=== PATIENT | male | born 1960 | race Caucasian/White ===

== ENCOUNTER 2021-11-27 17:59 | Inpatient (IN) | payer MEDICARE, OTHER ==
[~2021-11-27] VITALS: Ht 170.2 cm; Wt 94.3 kg
[2021-11-27] MEDS ORDERED: VANCOMYCIN 1G PREMIX 200 ML IV ONE (19:15)
[2021-11-27] MEDS ORDERED: SODIUM CHLORIDE 0.9% 1,000 ML IV ONE (19:15)
[2021-11-27] MEDS ORDERED: SODIUM CHLORIDE 0.9% 1000ML BAG (SEPSIS BOLUS) IV ONE (19:15)
[2021-11-27] MEDS ORDERED: PIPERACILLIN/TAZ 3.375G PREMIX 50 ML IV ONE (19:15)
[2021-11-27 20:05] LABS: BASOPHILS % 0.5 % (0.0-2.0); EOSINOPHILS % 1.8 % (0.0-5.0); HEMATOCRIT. 38.3 % (42.0-52.0); HEMOGLOBIN. 12.8 g/dL (14.0-18.0); LYMPHOCYTES % 10.9 % (20.0-50.0); MEAN CORPUSCULAR HEMOGLOBIN 27.9 pg (28.0-32.0); MEAN CORPUSCULAR VOLUME 83.4 fL (80.0-94.0); MEAN PLATELET VOLUME 6.7 fl (7.4-10.4); MONOCYTES % 8.6 % (2.0-8.0); NEUTROPHILS % 78.2 % (40.0-76.0); PLATELET 336 x1000/uL (130-400); RED BLOOD CELL COUNT 4.59 mill/uL (4.7-6.1); RED CELL DISTRIBUTION WIDTH 15.2 % (11.6-14.6)
[2021-11-27 20:13] LABS: CHLORIDE 103 mEq/L (98-107)
[2021-11-27] MEDS ORDERED: MORPHINE SULFATE 4 MG/ML CPJ (NOT FOR IM USE) IV ONE (22:15)
[2021-11-28] VITALS (11 sets, daily range): BP systolic 91–142; BP diastolic 49–84
[2021-11-28 00:33] LABS: CLARITY URINE CLEAR (CLEAR); COLOR URINE YELLOW (YELLOW); KETONES URINE NEGATIVE (NEGATIVE); LEUKOCYTE ESTERASE URINE NEGATIVE (NEGATIVE); NITRITE URINE NEGATIVE (NEGATIVE); OCCULT BLOOD URINE NEGATIVE (NEGATIVE); PROTEIN URINE NEGATIVE (NEGATIVE); SPECIFIC GRAVITY URINE 1.018 (1.005-1.030); UROBILINOGEN URINE 0.2 E.U./dL (0.2-1.0)
[2021-11-28] MEDS ORDERED: DIPHENHYDRAMINE 50MG/ML VIAL IV PRN (01:00)
[2021-11-28] MEDS ORDERED: ACETAMINOPHEN 325MG TABLET PO PRN (01:00)
[2021-11-28] MEDS ORDERED: VANCOMYCIN 1G PREMIX 200 ML IV SCH ×2 (01:00→08:00)
[2021-11-28] MEDS ORDERED: CLONIDINE 0.1MG TABLET PO PRN (01:00)
[2021-11-28] MEDS ORDERED: ONDANSETRON HCL 4MG/2ML INJ IV PRN (01:00)
[2021-11-28] MEDS ORDERED: ZOLPIDEM TARTRATE 5MG TABLET PO PRN (01:00)
[2021-11-28] MEDS ORDERED: NALOXONE HCL 0.4MG/ML VIAL IV PRN (01:30)
[2021-11-28] MEDS: SODIUM CHLORIDE 0.9% INJ 3ML FLUSH IVF SCH ×3 (06:50→21:26)
[2021-11-28] MEDS: MORPHINE SULFATE 2 MG/ML CPJ (NOT FOR IM USE) IV PRN ×4 (06:51→23:59)
[2021-11-28] MEDS ORDERED: PNEUMOCOCCAL 23-VAL P-SAC VAC 0.5 ML IM ONE (08:00)
[2021-11-28] MEDS: ENOXAPARIN 30MG/0.3ML SYR SUBCUT SCH ×2 (08:45→21:26)
[2021-11-28] MEDS: VANCOMYCIN 1GM PMX (XELLIA) 200 ML IV SCH ×2 (11:01→21:23)
[2021-11-28] MEDS ORDERED: DIAZEPAM 5 MG TABLET PO SCH (14:00)
[2021-11-28] MEDS ORDERED: CEFTRIAXONE 1 G PREMIX 50 ML IV SCH (14:15)
[2021-11-28] MEDS: CEFTRIAXONE 1,000 MG in DEXTROSE 5% WATER 50 ML IV SCH (15:49)
[2021-11-29] VITALS (12 sets, daily range): BP systolic 118–140; BP diastolic 69–88
[2021-11-29] MEDS: MAGNESIUM/ALUMINUM HYDROXIDE/SIMETHICONE 30ML UDC PO PRN ×2 (05:00→09:38)
[2021-11-29] MEDS: SODIUM CHLORIDE 0.9% INJ 3ML FLUSH IVF SCH ×2 (05:23→13:12)
[2021-11-29 07:04] LABS: BASOPHILS % 1.1 % (0.0-2.0); EOSINOPHILS % 9.9 % (0.0-5.0); HEMATOCRIT. 32.9 % (42.0-52.0); HEMOGLOBIN. 11.2 g/dL (14.0-18.0); LYMPHOCYTES % 22.1 % (20.0-50.0); MEAN CORPUSCULAR HEMOGLOBIN 28.3 pg (28.0-32.0); MEAN CORPUSCULAR VOLUME 83.1 fL (80.0-94.0); MEAN PLATELET VOLUME 6.9 fl (7.4-10.4); MONOCYTES % 8.5 % (2.0-8.0); NEUTROPHILS % 58.4 % (40.0-76.0); PLATELET 282 x1000/uL (130-400); RED BLOOD CELL COUNT 3.96 mill/uL (4.7-6.1); RED CELL DISTRIBUTION WIDTH 15.2 % (11.6-14.6)
[2021-11-29 07:30] LABS: CHLORIDE 106 mEq/L (98-107)
[2021-11-29] MEDS: VANCOMYCIN 1GM PMX (XELLIA) 200 ML IV SCH ×2 (09:38→20:12)
[2021-11-29] MEDS: MORPHINE SULFATE 2 MG/ML CPJ (NOT FOR IM USE) IV PRN ×2 (09:38→20:03)
[2021-11-29] MEDS: POLYETHYLENE GLYCOL 3350 (17GM) 1 DOSE PACK PO SCH (10:12)
[2021-11-29] MEDS ORDERED: LACTULOSE 20G/30ML UDC PO NR (10:15)
[2021-11-29] MEDS ORDERED: BISACODYL 10MG SUPP PR NR (10:15)
[2021-11-29] MEDS ORDERED: GADOTERATE MEGLUMINE 5 MMOL/10 ML VIAL IV ONE (11:57)
[2021-11-29] MEDS: CEFTRIAXONE 1,000 MG in DEXTROSE 5% WATER 50 ML IV SCH (14:00)
[2021-11-30] VITALS (30 sets, daily range): BP systolic 73–172; BP diastolic 29–159
[2021-11-30] MEDS: SODIUM CHLORIDE 0.9% INJ 3ML FLUSH IVF SCH ×4 (00:06→22:12)
[2021-11-30] MEDS: MORPHINE SULFATE 2 MG/ML CPJ (NOT FOR IM USE) IV PRN ×4 (07:46→22:54)
[2021-11-30] MEDS: VANCOMYCIN 1GM PMX (XELLIA) 200 ML IV SCH ×2 (07:50→20:49)
[2021-11-30] MEDS: POLYETHYLENE GLYCOL 3350 (17GM) 1 DOSE PACK PO SCH (08:07)
[2021-11-30] MEDS ORDERED: SODIUM CHLORIDE 0.9% IRRIG SOL 2,000 ML IR ONE (11:14)
[2021-11-30] MEDS ORDERED: LIDOCAINE HCL/EPINEPHRINE 1%-EPI 1:100,000 30 ML VIAL INFIL ONE (11:14)
[2021-11-30] MEDS ORDERED: GENTAMICIN SULF 40MG/ML 2ML VIAL ONE (11:14)
[2021-11-30] MEDS ORDERED: THROMBIN (BOVINE) 5000 UNITS/VIAL TOP ONE (11:16)
[2021-11-30] MEDS ORDERED: PROPOFOL 10MG/ML 100ML 100 ML IV ONE ×2 (11:31→11:45)
[2021-11-30] MEDS ORDERED: NICARDIPINE 40MG/200ML PREMIX 200 ML IV ONE (11:32)
[2021-11-30] MEDS ORDERED: METOCLOPRAMIDE HCL 10MG/2ML VIAL ONE (11:47)
[2021-11-30] MEDS ORDERED: ONDANSETRON HCL 4MG/2ML INJ ONE (11:47)
[2021-11-30] MEDS ORDERED: SODIUM CHLORIDE 0.9% 10ML VIAL ONE ×2 (11:49→12:00)
[2021-11-30] MEDS ORDERED: PHENYLEPHRINE HCL 10 MG/ML 1ML (IV VIAL) IV ONE (11:51)
[2021-11-30] MEDS ORDERED: FENTANYL CITRATE/PF 50MCG/ML 2ML VIAL ONE (11:54)
[2021-11-30] MEDS ORDERED: ACETAMINOPHEN 500MG TABLET ONE (11:55)
[2021-11-30] MEDS ORDERED: MIDAZOLAM HCL 2 MG/2 ML VIAL ONE (12:16)
[2021-11-30] MEDS: DEXT 5%/LACTATED RINGERS 1,000 ML IV SCH (12:30)
[2021-11-30] MEDS ORDERED: NICARDIPINE 100 MG in SODIUM CHLORIDE 0.9% 60 ML IV PRN (12:30)
[2021-11-30] MEDS ORDERED: LIDOCAINE HCL 1% 20ML VIAL (Pyxis) INJ ONE (13:08)
[2021-11-30] MEDS ORDERED: LABETALOL HCL 5MG/ML VIAL 20ML IV ONE (13:27)
[2021-11-30] MEDS ORDERED: NEOSTIGMINE METHYLSULFATE 1MG/ML 10 ML VIAL ONE (13:27)
[2021-11-30] MEDS ORDERED: GLYCOPYRROLATE 0.2 MG/ML 2ML VIAL ONE (13:27)
[2021-11-30] MEDS: CEFTRIAXONE 2 G in DEXTROSE 5% WATER 50 ML IV SCH (14:00)
[2021-11-30] MEDS ORDERED: DIPHENHYDRAMINE INJ IV PRN (19:00)
[2021-11-30] MEDS ORDERED: NALOXONE INJ IV PRN (19:00)
[2021-11-30] MEDS ORDERED: ONDANSETRON INJ IV PRN (19:00)
[2021-11-30] MEDS ORDERED: HYDROMORPHONE PCA 10MG/50ML IV PRN (21:19)
[2021-12-01] VITALS (88 sets, daily range): BP systolic 16–290; BP diastolic -6–275
[2021-12-01] MEDS: MORPHINE SULFATE 2 MG/ML CPJ (NOT FOR IM USE) IV PRN ×9 (01:08→21:54)
[2021-12-01] MEDS: SODIUM CHLORIDE 0.9% INJ 3ML FLUSH IVF SCH ×3 (06:01→21:31)
[2021-12-01 06:45] LABS: BASOPHILS % 0.6 % (0.0-2.0); EOSINOPHILS % 2.6 % (0.0-5.0); HEMATOCRIT. 32.4 % (42.0-52.0); HEMOGLOBIN. 11.1 g/dL (14.0-18.0); LYMPHOCYTES % 10.1 % (20.0-50.0); MEAN CORPUSCULAR HEMOGLOBIN 28.3 pg (28.0-32.0); MEAN CORPUSCULAR VOLUME 82.4 fL (80.0-94.0); MONOCYTES % 8.5 % (2.0-8.0); NEUTROPHILS % 78.2 % (40.0-76.0); RED BLOOD CELL COUNT 3.93 mill/uL (4.7-6.1); RED CELL DISTRIBUTION WIDTH 15.1 % (11.6-14.6)
[2021-12-01 06:54] LABS: CHLORIDE 104 mEq/L (98-107)
[2021-12-01] MEDS: VANCOMYCIN 1GM PMX (XELLIA) 200 ML IV SCH ×2 (08:10→20:29)
[2021-12-01] MEDS: POLYETHYLENE GLYCOL 3350 (17GM) 1 DOSE PACK PO SCH (08:11)
[2021-12-01] MEDS: DEXT 5%/LACTATED RINGERS 1,000 ML IV SCH ×2 (12:17→20:30)
[2021-12-01] MEDS: CEFTRIAXONE 2 G in DEXTROSE 5% WATER 50 ML IV SCH (14:35)
[2021-12-01 19:06] LABS: QFT MITOGEN VALUE 5.25 IU/mL (.); QFT TB GOLD PLUS Negative (Negative); QFT TB1 AG VALUE 0.03 IU/mL (.)
[2021-12-02] VITALS (48 sets, daily range): BP systolic 86–133; BP diastolic 23–89
[2021-12-02] MEDS: MORPHINE SULFATE 2 MG/ML CPJ (NOT FOR IM USE) IV PRN ×8 (02:06→23:21)
[2021-12-02] MEDS: DEXT 5%/LACTATED RINGERS 1,000 ML IV SCH ×2 (04:44→11:35)
[2021-12-02] MEDS: SODIUM CHLORIDE 0.9% INJ 3ML FLUSH IVF SCH ×3 (05:06→22:14)
[2021-12-02] MEDS: VANCOMYCIN 1GM PMX (XELLIA) 200 ML IV SCH ×2 (08:01→19:58)
[2021-12-02] MEDS: POLYETHYLENE GLYCOL 3350 (17GM) 1 DOSE PACK PO SCH (08:01)
[2021-12-02] MEDS: CEFTRIAXONE 2 G in DEXTROSE 5% WATER 50 ML IV SCH (14:37)
[2021-12-02] MEDS: HYDROCODONE/ACETAMINOPHEN 10/325MG TABLET PO PRN (18:20)
[2021-12-03] VITALS (25 sets, daily range): BP systolic 89–127; BP diastolic 41–80
[2021-12-03] MEDS: MORPHINE SULFATE 2 MG/ML CPJ (NOT FOR IM USE) IV PRN ×6 (01:30→20:03)
[2021-12-03] MEDS: HYDROCODONE/ACETAMINOPHEN 10/325MG TABLET PO PRN ×4 (02:28→18:20)
[2021-12-03] MEDS: SODIUM CHLORIDE 0.9% INJ 3ML FLUSH IVF SCH ×3 (05:08→22:00)
[2021-12-03 05:51] LABS: BASOPHILS % 0.8 % (0.0-2.0); EOSINOPHILS % 11.4 % (0.0-5.0); HEMOGLOBIN. 10.3 g/dL (14.0-18.0); LYMPHOCYTES % 15.2 % (20.0-50.0); MEAN CORPUSCULAR HEMOGLOBIN 27.8 pg (28.0-32.0); MEAN PLATELET VOLUME 7.2 fl (7.4-10.4); MONOCYTES % 8.1 % (2.0-8.0); NEUTROPHILS % 64.5 % (40.0-76.0); PLATELET 315 x1000/uL (130-400); RED CELL DISTRIBUTION WIDTH 14.6 % (11.6-14.6)
[2021-12-03 06:06] LABS: CHLORIDE 104 mEq/L (98-107)
[2021-12-03] MEDS: POLYETHYLENE GLYCOL 3350 (17GM) 1 DOSE PACK PO SCH (08:59)
[2021-12-03] MEDS: VANCOMYCIN 1GM PMX (XELLIA) 200 ML IV SCH ×2 (08:59→20:08)
[2021-12-03] MEDS: CEFTRIAXONE 2 G in DEXTROSE 5% WATER 50 ML IV SCH (14:25)
[2021-12-03] MEDS: ACYCLOVIR 400 MG TABLET PO SCH (18:21)
[2021-12-04] VITALS: BP 104/62
[2021-12-04] MEDS: MORPHINE SULFATE 2 MG/ML CPJ (NOT FOR IM USE) IV PRN ×4 (01:43→20:00)
[2021-12-04 04:00] VITALS: BP 113/58
[2021-12-04] MEDS: SODIUM CHLORIDE 0.9% INJ 3ML FLUSH IVF SCH ×3 (06:00→21:58)
[2021-12-04 08:00] VITALS: BP 109/65
[2021-12-04] MEDS: ACYCLOVIR 400 MG TABLET PO SCH ×3 (09:03→17:31)
[2021-12-04] MEDS: VANCOMYCIN 1GM PMX (XELLIA) 200 ML IV SCH ×2 (09:03→19:58)
[2021-12-04] MEDS: POLYETHYLENE GLYCOL 3350 (17GM) 1 DOSE PACK PO SCH (09:03)
[2021-12-04 12:00] VITALS: BP 108/64
[2021-12-04] MEDS: CEFTRIAXONE 2 G in DEXTROSE 5% WATER 50 ML IV SCH (13:16)
[2021-12-04 16:00] VITALS: BP 101/64
[2021-12-04] MEDS: HYDROCODONE/ACETAMINOPHEN 10/325MG TABLET PO PRN (17:45)
[2021-12-04 20:00] VITALS: BP 106/52
[2021-12-05] VITALS: BP 107/66
[2021-12-05] MEDS: MORPHINE SULFATE 2 MG/ML CPJ (NOT FOR IM USE) IV PRN ×4 (00:33→21:13)
[2021-12-05 04:00] VITALS: BP 132/72
[2021-12-05] MEDS: SODIUM CHLORIDE 0.9% INJ 3ML FLUSH IVF SCH ×3 (05:06→21:12)
[2021-12-05] MEDS: DOCUSATE SODIUM 250MG CAPSULE PO PRN (06:44)
[2021-12-05 07:37] LABS: CHLORIDE 105 mEq/L (98-107)
[2021-12-05 08:00] VITALS: BP 144/69
[2021-12-05] MEDS: POLYETHYLENE GLYCOL 3350 (17GM) 1 DOSE PACK PO SCH (09:27)
[2021-12-05] MEDS: ACYCLOVIR 400 MG TABLET PO SCH ×3 (09:27→16:47)
[2021-12-05] MEDS: VANCOMYCIN 1GM PMX (XELLIA) 200 ML IV SCH ×2 (09:28→21:11)
[2021-12-05] MEDS: HYDROCODONE/ACETAMINOPHEN 10/325MG TABLET PO PRN (09:33)
[2021-12-05 12:00] VITALS: BP 130/79
[2021-12-05] MEDS ORDERED: LIDOCAINE HCL 1% 20ML VIAL (Pyxis) INJ ONE (12:54)
[2021-12-05 16:00] VITALS: BP 142/90
[2021-12-05] MEDS ORDERED: MORPHINE SULFATE 4 MG/ML CPJ (NOT FOR IM USE) IV PRN (16:00)
[2021-12-05] MEDS: CEFTRIAXONE 2 G in DEXTROSE 5% WATER 50 ML IV SCH (17:00)
[2021-12-05 20:00] VITALS: BP 129/69
[2021-12-05] MEDS: LACTULOSE 20G/30ML UDC PO SCH (21:11)
[2021-12-06] VITALS: BP 136/59
[2021-12-06 04:00] VITALS: BP 117/51
[2021-12-06] MEDS: MORPHINE SULFATE 2 MG/ML CPJ (NOT FOR IM USE) IV PRN ×4 (04:13→20:50)
[2021-12-06] MEDS: LACTULOSE 20G/30ML UDC PO SCH ×3 (05:12→20:52)
[2021-12-06] MEDS: SODIUM CHLORIDE 0.9% INJ 3ML FLUSH IVF SCH ×3 (05:13→20:50)
[2021-12-06 08:00] VITALS: BP 131/57
[2021-12-06] MEDS: VANCOMYCIN 1GM PMX (XELLIA) 200 ML IV SCH ×2 (10:43→20:50)
[2021-12-06] MEDS: POLYETHYLENE GLYCOL 3350 (17GM) 1 DOSE PACK PO SCH (10:43)
[2021-12-06] MEDS: ACYCLOVIR 400 MG TABLET PO SCH ×3 (10:43→17:51)
[2021-12-06 12:00] VITALS: BP 135/92
[2021-12-06] MEDS: CEFTRIAXONE 2 G in DEXTROSE 5% WATER 50 ML IV SCH (15:10)
[2021-12-06 16:00] VITALS: BP 106/68
[2021-12-06] MEDS: MAGNESIUM/ALUMINUM HYDROXIDE/SIMETHICONE 30ML UDC PO PRN (17:51)
[2021-12-06 20:00] VITALS: BP 146/84
[2021-12-06] MEDS: ZOLPIDEM TARTRATE 5MG TABLET PO PRN (22:54)
[2021-12-07] VITALS: BP 146/92
[2021-12-07] MEDS: MORPHINE SULFATE 2 MG/ML CPJ (NOT FOR IM USE) IV PRN ×5 (01:03→19:52)
[2021-12-07 04:00] VITALS: BP 128/71
[2021-12-07] MEDS: SODIUM CHLORIDE 0.9% INJ 3ML FLUSH IVF SCH ×3 (05:34→21:50)
[2021-12-07] MEDS: LACTULOSE 20G/30ML UDC PO SCH ×3 (05:34→21:50)
[2021-12-07 08:00] VITALS: BP 118/79
[2021-12-07] MEDS: ACYCLOVIR 400 MG TABLET PO SCH ×3 (08:43→18:00)
[2021-12-07] MEDS: POLYETHYLENE GLYCOL 3350 (17GM) 1 DOSE PACK PO SCH (08:44)
[2021-12-07] MEDS: VANCOMYCIN 1GM PMX (XELLIA) 200 ML IV SCH ×2 (08:44→19:52)
[2021-12-07 12:00] VITALS: BP 123/86
[2021-12-07] MEDS: CEFTRIAXONE 2 G in DEXTROSE 5% WATER 50 ML IV SCH (14:02)
[2021-12-07] MEDS ORDERED: NA PHOS,M-B/NA PHOS,DI-BA ENEMA 118ML PR NR (15:30)
[2021-12-07 16:00] VITALS: BP 165/60
[2021-12-07 20:00] VITALS: BP 124/62
[2021-12-07] MEDS: ZOLPIDEM TARTRATE 5MG TABLET PO PRN (21:50)
[2021-12-08] VITALS (7 sets, daily range): BP systolic 101–144; BP diastolic 49–89
[2021-12-08] MEDS: MORPHINE SULFATE 2 MG/ML CPJ (NOT FOR IM USE) IV PRN ×7 (00:02→21:28)
[2021-12-08] MEDS: LACTULOSE 20G/30ML UDC PO SCH ×3 (06:03→21:26)
[2021-12-08] MEDS: SODIUM CHLORIDE 0.9% INJ 3ML FLUSH IVF SCH ×3 (06:04→21:27)
[2021-12-08] MEDS: POLYETHYLENE GLYCOL 3350 (17GM) 1 DOSE PACK PO SCH (08:45)
[2021-12-08] MEDS: VANCOMYCIN 1GM PMX (XELLIA) 200 ML IV SCH ×2 (08:45→21:26)
[2021-12-08] MEDS: ACYCLOVIR 400 MG TABLET PO SCH ×3 (08:46→17:35)
[2021-12-08] MEDS: CEFTRIAXONE 2 G in DEXTROSE 5% WATER 50 ML IV SCH (14:12)
[2021-12-08] MEDS: ZOLPIDEM TARTRATE 5MG TABLET PO PRN (21:41)
[2021-12-09] VITALS: BP 143/79
[2021-12-09] MEDS: MORPHINE SULFATE 2 MG/ML CPJ (NOT FOR IM USE) IV PRN ×5 (01:05→20:16)
[2021-12-09 04:00] VITALS: BP 126/65
[2021-12-09 04:06] LABS: HISTOPLASMA ABS QT DID None Detected (.)
[2021-12-09] MEDS: LACTULOSE 20G/30ML UDC PO SCH ×3 (05:31→21:11)
[2021-12-09] MEDS: SODIUM CHLORIDE 0.9% INJ 3ML FLUSH IVF SCH ×3 (05:32→21:11)
[2021-12-09 08:04] LABS: PROTHROMBIN TIME 11.2 sec (9.6-11.0)
[2021-12-09] MEDS: VANCOMYCIN 1GM PMX (XELLIA) 200 ML IV SCH ×2 (08:58→20:17)
[2021-12-09] MEDS: POLYETHYLENE GLYCOL 3350 (17GM) 1 DOSE PACK PO SCH (08:58)
[2021-12-09] MEDS: ACYCLOVIR 400 MG TABLET PO SCH ×3 (08:59→17:17)
[2021-12-09] MEDS: CEFTRIAXONE 2 G in DEXTROSE 5% WATER 50 ML IV SCH (14:25)
[2021-12-09 20:00] VITALS: BP 117/71
[2021-12-09] MEDS: SIMETHICONE 80MG TABLET CHEW PO PRN (20:17)
[2021-12-09] MEDS: ZOLPIDEM TARTRATE 5MG TABLET PO PRN (21:11)
[2021-12-10] VITALS: BP 112/63
[2021-12-10] MEDS: MORPHINE SULFATE 2 MG/ML CPJ (NOT FOR IM USE) IV PRN ×5 (03:09→14:11)
[2021-12-10 04:00] VITALS: BP 108/63
[2021-12-10] MEDS: LACTULOSE 20G/30ML UDC PO SCH ×3 (05:13→21:38)
[2021-12-10] MEDS: SODIUM CHLORIDE 0.9% INJ 3ML FLUSH IVF SCH ×3 (05:16→21:38)
[2021-12-10] MEDS: SIMETHICONE 80MG TABLET CHEW PO PRN ×2 (05:26→14:19)
[2021-12-10 07:41] LABS: CHLORIDE 109 mEq/L (98-107)
[2021-12-10 08:00] VITALS: BP 113/67
[2021-12-10] MEDS: ACYCLOVIR 400 MG TABLET PO SCH ×3 (08:25→16:08)
[2021-12-10] MEDS: POLYETHYLENE GLYCOL 3350 (17GM) 1 DOSE PACK PO SCH ×2 (08:25→08:34)
[2021-12-10] MEDS: VANCOMYCIN 1GM PMX (XELLIA) 200 ML IV SCH ×2 (08:25→21:37)
[2021-12-10] MEDS: DOCUSATE SODIUM 250MG CAPSULE PO PRN (09:52)
[2021-12-10 12:00] VITALS: BP 140/80
[2021-12-10] MEDS: CEFTRIAXONE 2 G in DEXTROSE 5% WATER 50 ML IV SCH (14:19)
[2021-12-10 16:00] VITALS: BP 110/72
[2021-12-10] MEDS: ACETAMINOPHEN 325MG TABLET PO PRN ×2 (18:19→23:08)
[2021-12-10 20:00] VITALS: BP 137/65
[2021-12-10] MEDS: ZOLPIDEM TARTRATE 5MG TABLET PO PRN (23:41)
[2021-12-11] VITALS: BP 131/63
[2021-12-11 04:00] VITALS: BP 129/67
[2021-12-11] MEDS: ACETAMINOPHEN 325MG TABLET PO PRN ×2 (04:50→10:37)
[2021-12-11] MEDS: SODIUM CHLORIDE 0.9% INJ 3ML FLUSH IVF SCH ×3 (06:00→22:38)
[2021-12-11 07:38] VITALS: BP 123/70
[2021-12-11] MEDS: POLYETHYLENE GLYCOL 3350 (17GM) 1 DOSE PACK PO SCH (09:28)
[2021-12-11] MEDS: ACYCLOVIR 400 MG TABLET PO SCH ×2 (09:29→13:33)
[2021-12-11] MEDS: VANCOMYCIN 1GM PMX (XELLIA) 200 ML IV SCH ×2 (10:12→20:30)
[2021-12-11 12:01] VITALS: BP 141/81
[2021-12-11] MEDS ORDERED: NALOXONE HCL 0.4MG/ML VIAL IV PRN (12:15)
[2021-12-11] MEDS: HYDROCODONE/ACETAMINOPHEN 10/325MG TABLET PO PRN ×2 (13:33→20:36)
[2021-12-11] MEDS: LACTULOSE 20G/30ML UDC PO SCH ×5 (14:00→22:00)
[2021-12-11] MEDS: CEFTRIAXONE 2 G in DEXTROSE 5% WATER 50 ML IV SCH (14:42)
[2021-12-11] MEDS: SIMETHICONE 80MG TABLET CHEW PO PRN (14:42)
[2021-12-11] MEDS: MORPHINE SULFATE 2 MG/ML CPJ (NOT FOR IM USE) IV PRN ×2 (15:53→23:36)
[2021-12-11 16:00] VITALS: BP 122/85
[2021-12-11 20:00] VITALS: BP 117/81
[2021-12-11] MEDS: ZOLPIDEM TARTRATE 5MG TABLET PO PRN (22:40)
[2021-12-12] VITALS: BP 121/69
[2021-12-12 04:00] VITALS: BP 123/78
[2021-12-12] MEDS: HYDROCODONE/ACETAMINOPHEN 10/325MG TABLET PO PRN ×2 (05:32→12:39)
[2021-12-12] MEDS: LACTULOSE 20G/30ML UDC PO SCH ×4 (05:33→21:21)
[2021-12-12] MEDS: SODIUM CHLORIDE 0.9% INJ 3ML FLUSH IVF SCH ×3 (05:33→21:11)
[2021-12-12 07:28] LABS: CHLORIDE 109 mEq/L (98-107)
[2021-12-12 07:37] LABS: BASOPHILS % 1.2 % (0.0-2.0); EOSINOPHILS % 5.6 % (0.0-5.0); HEMATOCRIT. 33.5 % (42.0-52.0); HEMOGLOBIN. 11.4 g/dL (14.0-18.0); LYMPHOCYTES % 23.1 % (20.0-50.0); MEAN CORPUSCULAR HEMOGLOBIN 28.1 pg (28.0-32.0); MEAN CORPUSCULAR VOLUME 82.8 fL (80.0-94.0); MEAN PLATELET VOLUME 7.1 fl (7.4-10.4); MONOCYTES % 7.8 % (2.0-8.0); NEUTROPHILS % 62.3 % (40.0-76.0); PLATELET 489 x1000/uL (130-400); RED BLOOD CELL COUNT 4.05 mill/uL (4.7-6.1); RED CELL DISTRIBUTION WIDTH 15.1 % (11.6-14.6)
[2021-12-12 08:00] VITALS: BP 110/69
[2021-12-12] MEDS: POLYETHYLENE GLYCOL 3350 (17GM) 1 DOSE PACK PO SCH (09:00)
[2021-12-12] MEDS: SIMETHICONE 80MG TABLET CHEW PO PRN (09:09)
[2021-12-12] MEDS: VANCOMYCIN 1GM PMX (XELLIA) 200 ML IV SCH ×2 (09:09→21:11)
[2021-12-12] MEDS: MORPHINE SULFATE 2 MG/ML CPJ (NOT FOR IM USE) IV PRN ×2 (09:15→21:12)
[2021-12-12 12:00] VITALS: BP 117/67
[2021-12-12] MEDS: CEFTRIAXONE 2 G in DEXTROSE 5% WATER 50 ML IV SCH (14:30)
[2021-12-12 16:00] VITALS: BP 126/69
[2021-12-12 20:00] VITALS: BP 134/58
[2021-12-12] MEDS ORDERED: ZOLPIDEM TARTRATE 5MG TABLET PO PRN (22:00)
[2021-12-13] VITALS: BP 121/63
[2021-12-13] MEDS: HYDROCODONE/ACETAMINOPHEN 10/325MG TABLET PO PRN ×2 (01:16→08:51)
[2021-12-13 04:00] VITALS: BP 112/64
[2021-12-13] MEDS: MORPHINE SULFATE 2 MG/ML CPJ (NOT FOR IM USE) IV PRN ×2 (05:17→12:04)
[2021-12-13] MEDS: LACTULOSE 20G/30ML UDC PO SCH ×2 (05:20→14:22)
[2021-12-13] MEDS: SODIUM CHLORIDE 0.9% INJ 3ML FLUSH IVF SCH ×2 (05:20→14:23)
[2021-12-13 08:00] VITALS: BP 95/52
[2021-12-13] MEDS: POLYETHYLENE GLYCOL 3350 (17GM) 1 DOSE PACK PO SCH (08:50)
[2021-12-13] MEDS: VANCOMYCIN 1GM PMX (XELLIA) 200 ML IV SCH (08:50)
[2021-12-13 11:56] VITALS: BP 128/56
[2021-12-13] MEDS: CEFTRIAXONE 2 G in DEXTROSE 5% WATER 50 ML IV SCH (14:14)
[2021-12-13 15:41] VITALS: BP 128/65
[2021-12-13 16:00] VITALS: BP 132/65
== END 2021-12-13 16:02 | DRG 29 ==
LOC: ER 17:59 → INTOOBSV 23:28 → MICUSO 23:28 → OBSVTOIN 23:28 → 3WST 11-28 00:08 → MICUNO 11-30 15:19 → 6EST 12-03 11:20
PROVIDERS: ADMIT Internal Medicine; ATTEND Internal Medicine
PROC: 00NX0ZZ Release Thoracic Spinal Cord, Open Approach (ICD-10-PCS; principal; 2021-11-30)
PROC: 01N80ZZ Release Thoracic Nerve, Open Approach (ICD-10-PCS; 2021-11-30)
PROC: 009U00Z Drainage of Spinal Canal with Drainage Device, Open Approach (ICD-10-PCS; 2021-11-30)
PROC: 4A11X4G Monitoring of Peripheral Nervous Electrical Activity, Intraoperative, External Approach (ICD-10-PCS; 2021-11-30)
PROC: 05HY33Z Insertion of Infusion Device into Upper Vein, Percutaneous Approach (ICD-10-PCS; 2021-12-05)
PROC: B546ZZA Ultrasonography of Right Subclavian Vein, Guidance (ICD-10-PCS; 2021-12-05)
PROC: B51M1ZZ Fluoroscopy of Right Upper Extremity Veins using Low Osmolar Contrast (ICD-10-PCS; 2021-12-05)
DX: G06.1 Intraspinal abscess and granuloma (principal); M46.24 Osteomyelitis of vertebra, thoracic region; L03.116 Cellulitis of left lower limb; G82.20 Paraplegia, unspecified; M46.44 Discitis, unspecified, thoracic region; K59.00 Constipation, unspecified; E66.9 Obesity, unspecified; B02.9 Zoster without complications; F17.200 Nicotine dependence, unspecified, uncomplicated; Z20.822 Contact with and (suspected) exposure to COVID-19; M48.04 Spinal stenosis, thoracic region; M48.02 Spinal stenosis, cervical region; Z86.61 Personal history of infections of the central nervous system; Z68.32 Body mass index [BMI] 32.0-32.9, adult; Z79.899 Other long term (current) drug therapy; Z89.222 Acquired absence of left upper limb above elbow; R32 Unspecified urinary incontinence; R14.0 Abdominal distension (gaseous)
CPT/HCPCS: 36415; 36573; 71045; 72070; 72146; 72147; 72148; 74018; 74176; 76000; 76705; 80048; 80053; 80202; 81003; 83605; 83880; 84145; 84443; 84484; 85025; 85651; 86140; 86480; 86635; 86698; 86850; 86900; 87070; 87075; 87426; 87899; 88304; 88311; 90732; 93005; 93970; 97110; 97162; 97166; 97530; 97535; 99285; A9577; C1725; C1769; J0696; J1200; J1580; J1650; J2250; J2270; J2370; J2405; J2543; J2704; J2710; J2765; J3010; J3370; J3490; J7030; J7040; J7060; J7121; A4315